=== PATIENT | male | born 1955 | race African-American/Black ===

== ENCOUNTER 2018-06-03 10:21 | Emergency (ER) | payer MEDICARE, MEDICAID ==
[~2018-06-03] VITALS: Ht 170.2 cm; Wt 81.0 kg
[~2018-06-03 10:21] MED LIST: ACET-2178 PO; AMLO10TA80 MT; CALC-3 MT; CLOP75TA16 MT; LIP40 PO; LISI-604 MT; METF-414 MT; OMEG-118 MT; OXYB5TAB11 PO; TAMS-11 PO
[2018-06-03] MEDS ORDERED: ACETAMINOPHEN 325MG TABLET PO ONE (12:15)
[2018-06-03 13:35] VITALS: BP 175/95
== END 2018-06-03 13:40 | disposition home or self-care (01) ==
LOC: ER 12:08
DX: L03.032 Cellulitis of left toe (principal); L84 Corns and callosities; I10 Essential (primary) hypertension; E11.9 Type 2 diabetes mellitus without complications; F17.210 Nicotine dependence, cigarettes, uncomplicated; Z96.649 Presence of unspecified artificial hip joint; Z86.73 Personal history of transient ischemic attack (TIA), and cerebral infarction without residual deficits; Z79.84 Long term (current) use of oral hypoglycemic drugs
CPT/HCPCS: 73630; 99283

== ENCOUNTER 2023-12-03 13:50 | Emergency (ER) | payer BC, MEDICAID ==
[~2023-12-03] VITALS: Ht 170.2 cm; Wt 75.0 kg
[~2023-12-03 13:50] MED LIST changes: -ACET-2178 PO; +CLOP-31 MT; -CLOP75TA16 MT; -LISI-604 MT; +LISI20TA31 MT; +OXYB-52 PO; -OXYB5TAB11 PO; +TOPUD PO
[2023-12-03 13:54] VITALS: O2SAT 95
[2023-12-03 14:46] LABS: CHLORIDE 109 mEq/L (98-107); SODIUM 142 mEq/L (136-145)
[2023-12-03 14:47] LABS: BASOPHILS % 0.2 % (0.0-2.0); CALCIUM 8.4 mg/dL (8.7-10.4); CARBON DIOXIDE 27 mEq/L (21-32); EOSINOPHILS % 1.8 % (0.0-5.0); HEMATOCRIT. 30.6 % (42.0-52.0); HEMOGLOBIN. 10.2 g/dL (14.0-18.0); LYMPHOCYTES % 30.8 % (20.0-50.0); MEAN CORPUSCULAR HGB CONC 33.4 g/dL (31.0-37.0); MEAN PLATELET VOLUME 8.7 fl (7.4-10.4); MONOCYTES % 5.6 % (2.0-8.0); NEUTROPHILS % 61.6 % (40.0-76.0); PLATELET 198 x1000/uL (130-400); RED BLOOD CELL COUNT 3.65 mill/uL (4.7-6.1); RED CELL DISTRIBUTION WIDTH 15.3 % (11.6-14.6)
[2023-12-03 14:52] LABS: CREATININE 2.8 mg/dL (0.6-1.3); TROPONIN I HIGH SENSITIVITY 19 ng/L (3.0-53)
[2023-12-03 14:53] LABS: UREA NITROGEN BLOOD 30 mg/dL (9-23)
[2023-12-03 14:54] LABS: ALANINE AMINOTRANSFERASE 15 IU/L (10-49); ALBUMIN 3.5 g/dL (3.2-4.8); ASPARTATE AMINOTRANSFERASE 14 IU/L (<34)
[2023-12-03 14:55] LABS: BILIRUBIN DIRECT 0.1 mg/dL (<=3.0); BILIRUBIN TOTAL 0.3 mg/dL (0.1-1.0); PROTEIN TOTAL 6.4 g/dL (6.0-8.3)
[2023-12-03 15:27] LABS: ETHANOL BLOOD < 10 mg/dL (<10); GLUCOSE 192 mg/dL (70-105)
[2023-12-03] MEDS: SODIUM CHLORIDE 0.9% 1,000 ML IV ONE (15:51)
[2023-12-03 16:13] LABS: CLARITY URINE CLEAR (CLEAR); COLOR URINE YELLOW (YELLOW); GLUCOSE URINE TRACE (NEGATIVE); KETONES URINE NEGATIVE (NEGATIVE); LEUKOCYTE ESTERASE URINE NEGATIVE (NEGATIVE); NITRITE URINE NEGATIVE (NEGATIVE); OCCULT BLOOD URINE 1+ (NEGATIVE); PH URINE 6.5 (4.5-8.0); PROTEIN URINE 3+ (NEGATIVE); SPECIFIC GRAVITY URINE 1.015 (1.005-1.030)
[2023-12-03 16:56] LABS: BACTERIA URINE TRACE; SQUAMOUS EPITHELIAL CELL URINE RARE /lpf (RARE/1+)
[2023-12-03 16:57] LABS: WBC URINE 0-2 /hpf (0-2)
[2023-12-03 20:18] VITALS: BP 170/93; PULSE 78; RESP 20; TEMP 98
== END 2023-12-03 20:38 | disposition short-term general hospital (02) ==
LOC: ER 13:50 → EDBEDREQ 14:38 → ER 20:38
DX: R55 Syncope and collapse (principal); R42 Dizziness and giddiness; E11.9 Type 2 diabetes mellitus without complications; I10 Essential (primary) hypertension; Z86.73 Personal history of transient ischemic attack (TIA), and cerebral infarction without residual deficits; Z79.899 Other long term (current) drug therapy
CPT/HCPCS: 80076; 80048; 81003; 80320; 83880; 85025; 84484; 36415; 71045; 70450; 93005; 96360; 99285; J7030; G0480

== ENCOUNTER 2025-04-25 15:28 | Inpatient (IN) | payer MEDICAID, MEDICARE ==
[~2025-04-25] VITALS: Ht 170.2 cm; Wt 64.4 kg
[~2025-04-25 15:28] MED LIST changes: +FOLI0.8T53 MT; -METF-414 MT; -TAMS-11 PO; +TAMS-54 PO
[2025-04-25 15:32] VITALS: O2SAT 98
[2025-04-25] MEDS: ACETAMINOPHEN 325MG TABLET PO ONE (16:35)
[2025-04-25 16:47] LABS: BASOPHILS % 0.3 % (0.0-2.0); EOSINOPHILS % 2.7 % (0.0-5.0); HEMATOCRIT. 39.1 % (42.0-52.0); HEMOGLOBIN. 12.8 g/dL (14.0-18.0); LYMPHOCYTES % 23.0 % (20.0-50.0); MEAN PLATELET VOLUME 8.9 fl (7.4-10.4); MONOCYTES % 8.4 % (2.0-8.0); NEUTROPHILS % 65.6 % (40.0-76.0); PLATELET 156 x1000/uL (130-400); RED BLOOD CELL COUNT 4.35 mill/uL (4.7-6.1); RED CELL DISTRIBUTION WIDTH 16.9 % (11.6-14.6)
[2025-04-25 17:01] LABS: UREA NITROGEN BLOOD 23 mg/dL (9-23)
[2025-04-25 17:02] LABS: PROTEIN TOTAL 7.3 g/dL (6.0-8.3); TROPONIN I HIGH SENSITIVITY 12 ng/L (3.0-53)
[2025-04-25 17:03] LABS: ASPARTATE AMINOTRANSFERASE 14 IU/L (<34); BILIRUBIN DIRECT 0.2 mg/dL (<=3.0); BILIRUBIN TOTAL 0.7 mg/dL (0.1-1.0)
[2025-04-25 17:09] LABS: CREATININE 5.8 mg/dL (0.6-1.3)
[2025-04-25] MEDS ORDERED: ACETAMINOPHEN 325MG TABLET PO PRN ×2 (18:00)
[2025-04-25] MEDS ORDERED: CLONIDINE 0.1MG TABLET PO PRN (18:00)
[2025-04-25] MEDS ORDERED: ONDANSETRON HCL 4MG/2ML INJ IV PRN (18:00)
[2025-04-25] MEDS ORDERED: IPRATROPIUM/ALBUTEROL 0.5-3(2.5)MG/3ML NEB HHN PRN (18:00)
[2025-04-25 20:00] VITALS: BP 99/64; PULSE 73; RESP 16; TEMP 36.5; O2SAT 94
[2025-04-25] MEDS: OXYBUTYNIN CHLORIDE 5MG TABLET PO SCH (20:00)
[2025-04-25] MEDS: TAMSULOSIN HCL 0.4MG SR CAPSULE PO SCH (20:58)
[2025-04-25] MEDS: SUCRALFATE 1G TABLET PO SCH (20:58)
[2025-04-25] MEDS: FERROUS SULFATE 325MG TABLET PO SCH (20:58)
[2025-04-25] MEDS: CLOPIDOGREL 75MG TABLET PO SCH (20:59)
[2025-04-25] MEDS: PANTOPRAZOLE SODIUM 40 MG/VIAL IV SCH (20:59)
[2025-04-25] MEDS: ENOXAPARIN 40MG/0.4ML SYR SUBCUT SCH (21:00)
[2025-04-25] MEDS: ATORVASTATIN CALCIUM 40MG TABLET PO SCH (21:00)
[2025-04-26] VITALS: BP 105/54; PULSE 67; RESP 17; TEMP 36.8; O2SAT 95
[2025-04-26 03:12] VITALS: BP 105/54; PULSE 67; RESP 17; TEMP 37.1964
[2025-04-26 04:00] VITALS: BP 114/63; PULSE 77; RESP 18; TEMP 36.6; O2SAT 95
[2025-04-26 05:00] LABS: CLARITY URINE CLEAR (CLEAR); COLOR URINE YELLOW (YELLOW); GLUCOSE URINE NEGATIVE (NEGATIVE); KETONES URINE NEGATIVE (NEGATIVE); LEUKOCYTE ESTERASE URINE NEGATIVE (NEGATIVE); NITRITE URINE NEGATIVE (NEGATIVE); OCCULT BLOOD URINE NEGATIVE (NEGATIVE); PH URINE 7.0 (4.5-8.0); PROTEIN URINE 2+ (NEGATIVE); SPECIFIC GRAVITY URINE 1.030 (1.005-1.030); UROBILINOGEN URINE 1.0 E.U./dL (0.2-1.0)
[2025-04-26 05:09] LABS: *AMPHETAMINES SCREEN URINE NEGATIVE (NEGATIVE); *BARBITURATES SCREEN URINE NEGATIVE (NEGATIVE); *BENZODIAZEPINES SCREEN URINE NEGATIVE (NEGATIVE); *COCAINE SCREEN URINE NEGATIVE (NEGATIVE); CANNABINOID URINE SCREEN NEGATIVE (NEGATIVE); ECSTASY MDMA SCREEN URINE NEGATIVE (NEGATIVE); METHADONE URINE SCREEN NEGATIVE (NEGATIVE); OPIATES URINE SCREEN NEGATIVE (NEGATIVE); PHENCYCLIDINE URINE SCREEN NEGATIVE (NEGATIVE)
[2025-04-26 07:19] LABS: RBC URINE NONE SEEN /hpf (0-2); SQUAMOUS EPITHELIAL CELL URINE RARE /lpf (RARE/1+); WBC URINE 0-2 /hpf (0-2)
[2025-04-26 07:20] LABS: BACTERIA URINE NONE SEEN
[2025-04-26 07:57] LABS: LDL CHOLESTEROL 100.0 mg/dL (5-100); TRIGLYCERIDE 164.0 mg/dL (0-150); TROPONIN I HIGH SENSITIVITY 14 ng/L (3.0-53)
[2025-04-26 08:00] VITALS: BP 123/67; PULSE 64; RESP 16; TEMP 36.5; O2SAT 98
[2025-04-26 08:37] LABS: HEPATITIS C AB NON REACTIVE (Neg) (Negative)
[2025-04-26] MEDS ORDERED: DEXTROSE 50% WATER 50ML SYRINGE IV PRN ×2 (09:30→14:45)
[2025-04-26 10:11] LABS: UREA NITROGEN BLOOD 32 mg/dL (9-23)
[2025-04-26 10:13] LABS: CREATININE 6.3 mg/dL (0.6-1.3); PHOSPHORUS 4.7 mg/dL (2.5-4.9)
[2025-04-26] MEDS: BLOOD SUGAR DIAGNOSTIC STRIP TEST SCH ×2 (11:45→17:25)
[2025-04-26] MEDS: INSULIN LISPRO 100 UNITS/ML SUBCUT SCH (12:15)
[2025-04-26 14:40] LABS: BASOPHILS % 0.9 % (0.0-2.0); EOSINOPHILS % 4.1 % (0.0-5.0); HEMATOCRIT. 35.0 % (42.0-52.0); HEMOGLOBIN. 11.6 g/dL (14.0-18.0); LYMPHOCYTES % 35.1 % (20.0-50.0); MEAN PLATELET VOLUME 9.6 fl (7.4-10.4); MONOCYTES % 10.7 % (2.0-8.0); NEUTROPHILS % 49.2 % (40.0-76.0); PLATELET 176 x1000/uL (130-400); RED BLOOD CELL COUNT 3.93 mill/uL (4.7-6.1); RED CELL DISTRIBUTION WIDTH 16.7 % (11.6-14.6)
[2025-04-26 16:00] VITALS: BP 122/72; PULSE 74; RESP 16; TEMP 36.4; O2SAT 99
[2025-04-26 20:00] VITALS: BP 114/66; PULSE 65; RESP 18; TEMP 36.6; O2SAT 94; O2SAT 96
[2025-04-27] VITALS: BP 124/57; PULSE 67; RESP 18; TEMP 36.7; O2SAT 96
[2025-04-27 04:00] VITALS: BP_SYST 136; BP_DIAS 76; BP_DIAS 79; PULSE 65; RESP 18; TEMP 36.7; O2SAT 95
[2025-04-27 08:00] VITALS: BP 140/79; PULSE 66; RESP 15; TEMP 36.6; O2SAT 98
[2025-04-27 08:07] LABS: BASOPHILS % 0.2 % (0.0-2.0); EOSINOPHILS % 3.9 % (0.0-5.0); HEMATOCRIT. 34.7 % (42.0-52.0); HEMOGLOBIN. 11.5 g/dL (14.0-18.0); LYMPHOCYTES % 35.1 % (20.0-50.0); MEAN PLATELET VOLUME 9.1 fl (7.4-10.4); MONOCYTES % 7.6 % (2.0-8.0); NEUTROPHILS % 53.2 % (40.0-76.0); PLATELET 179 x1000/uL (130-400); RED BLOOD CELL COUNT 3.90 mill/uL (4.7-6.1); RED CELL DISTRIBUTION WIDTH 17.0 % (11.6-14.6)
[2025-04-27 08:31] LABS: UREA NITROGEN BLOOD 41.0 mg/dL (9-23)
[2025-04-27 08:33] LABS: PHOSPHORUS 5.3 mg/dL (2.5-4.9)
[2025-04-27 08:37] LABS: CREATININE 7.4 mg/dL (0.6-1.3)
[2025-04-27] MEDS ORDERED: SUCR1TAB PO (10:18)
[2025-04-27] MEDS ORDERED: FERR-63 PO (10:18)
[2025-04-27] MEDS ORDERED: AMLO10TA80 MT (10:18)
[2025-04-27] MEDS ORDERED: LIP40 PO (10:18)
[2025-04-27] MEDS ORDERED: OXYB5TAB21 PO (10:18)
[2025-04-27] MEDS ORDERED: TAMS-54 PO (10:18)
[2025-04-27] MEDS ORDERED: CLOP-31 PO (10:18)
[2025-04-27 12:00] VITALS: BP 130/74; PULSE 64; RESP 18; TEMP 36.5; O2SAT 97
[2025-04-27 13:11] VITALS: BP 130/74; PULSE 64; RESP 18; TEMP 97.7
== END 2025-04-27 15:02 | disposition home or self-care (01) | DRG 640 ==
LOC: ER 15:28 → 5WST 17:19 → EDBEDREQ 17:23 → EDBEDREQTM 17:23
PROVIDERS: ADMIT Internal Medicine; ATTEND Internal Medicine
DX: E86.1 Hypovolemia (principal); N18.6 End stage renal disease; I12.0 Hypertensive chronic kidney disease with stage 5 chronic kidney disease or end stage renal disease; E87.6 Hypokalemia; D64.9 Anemia, unspecified; E11.22 Type 2 diabetes mellitus with diabetic chronic kidney disease; E78.5 Hyperlipidemia, unspecified; Z99.2 Dependence on renal dialysis; Z79.02 Long term (current) use of antithrombotics/antiplatelets; K29.60 Other gastritis without bleeding; K21.9 Gastro-esophageal reflux disease without esophagitis; N40.0 Benign prostatic hyperplasia without lower urinary tract symptoms; Z96.649 Presence of unspecified artificial hip joint; Z79.899 Other long term (current) drug therapy; Z86.73 Personal history of transient ischemic attack (TIA), and cerebral infarction without residual deficits; Z90.49 Acquired absence of other specified parts of digestive tract
CPT/HCPCS: 36415; 74177; 80048; 80061; 80076; 80305; 81003; 82728; 82962; 83036; 83540; 83550; 83735; 84100; 84443; 84484; 85025; 86705; 87340; 93005; 93923; 96374; 99285; J1650; J2470